=== PATIENT | male | born 1985 | race Two or more races ===

== ENCOUNTER 2017-09-13 15:47 | Emergency (ER) | payer OTHER ==
[~2017-09-13] VITALS: Ht 180.3 cm; Wt 127.0 kg
[2017-09-13 16:20] VITALS: BP 155/100
[2017-09-13] MEDS ORDERED: methylPREDNISolone SOD SUCC 125 MG/2ML VIAL ONE (16:57)
[2017-09-13] MEDS ORDERED: methylPREDNISolone SOD SUCC 125 MG/2ML VIAL IM ONE (17:00)
--- NOTE | 2017-09-13 17:03 | NUR ---
PT ALREADY D/C BY MARY/LAKSHMI.
== END 2017-09-13 17:02 | disposition home or self-care (01) ==
LOC: ER 15:49
DX: L50.8 Other urticaria (principal); F17.200 Nicotine dependence, unspecified, uncomplicated; Z88.0 Allergy status to penicillin
CPT/HCPCS: 99283; A4606; J2930; Z7610